=== PATIENT | male | born 1935 | race Caucasian/White ===

== ENCOUNTER 2017-06-14 11:56 | Day surgery (SDC) | payer MEDICARE ==
[~2017-06-14 11:56] MED LIST: Acetaminophen TAB* 325 MG PO PRN; Buffered Lidocaine 0.9% SYRIN* 5 ML/SYR SYRINGE INTRADERM ONE
[2017-06-14] MEDS ORDERED: Midazolam* 1 MG/ML 2 ML VIAL (2 MG) ONE (13:33)
[2017-06-14] MEDS ORDERED: fentaNYL* 50 MCG/ML 2 ML VIAL (100 MCG VIAL) ONE (13:33)
[2017-06-14] MEDS ORDERED: BSS OPTH.SOL* BTL ONE (15:58)
[2017-06-14] MEDS ORDERED: Lidocaine 1% MPF* 2 ML VIAL ONE ×2 (15:59→16:15)
[2017-06-14 16:11] VITALS: BP 144/78
[2017-06-14] MEDS ORDERED: Tropicamide 1% OPTH.SOL* BTL ONE (16:15)
[2017-06-14] MEDS ORDERED: Neomycin/Polymy/Dex OPHTH.OIN* 3.5 GM ONE (16:15)
[2017-06-14] MEDS ORDERED: Tetracaine 0.5% OPTH.SOL 4 ML* 1 DROP BTL ONE (16:15)
[2017-06-14] MEDS ORDERED: Cyclopentolate 1% OPTH.SOL* 2 ML BTL ONE (16:15)
[2017-06-14] MEDS ORDERED: Buffered Lidocaine 0.9% SYRIN* 5 ML/SYR SYRINGE ONE (16:15)
[2017-06-14] MEDS ORDERED: Phenylephrine 2.5% OPTH.SOL* 2 ML BTL ONE (16:15)
[2017-06-14] MEDS ORDERED: Ketorolac 0.5% OPHTH (NF) 0.5 % 5 ML BTL ONE (16:15)
[2017-06-14] MEDS ORDERED: Povidone Iodine 5% OPTH* 30 ML BTL ONE (16:15)
[2017-06-14] MEDS ORDERED: acetaZOLAMIDE TAB* 250 MG ONE (16:15)
--- NOTE | 2017-06-15 10:12 | OP ---
DATE OF OPERATION: 06/14/17 - [facility] DATE OF : 31 SURGEON: Reji Colunga MD ANESTHESIOLOGIST: Toby Melendrez MD ANESTHESIA: Monitored anesthesia care. PRE-OP DIAGNOSIS: Cataract of the right eye. 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 OPERATIVE PROCEDURE: Cataract surgery of the right eye. IMPLANTS: SN60WF 23.3 diopter lens to the right eye. COMPLICATIONS: Floppy iris syndrome. DESCRIPTION OF PROCEDURE: The patient was given phenylephrine 2.5% and cyclopentolate 1% eye drops to the operative eye in the preoperative area. The patient was brought to the operating room where a time-out was taken to identify the correct patient, site, and side of surgery. The patient's right eye was prepped and draped in the usual sterile fashion with 5% Betadine. A second time- out was taken to identify the correct patient, site, and side of the surgery, and correct lens selection. A lid speculum was placed to the right eye. A 1-mm paracentesis blade was used to make a clear corneal incision in the superotemporal position. Preservative-free 1% lidocaine was injected into the anterior chamber. DisCoVisc was then injected into the anterior chamber. A 2.75-mm keratome blade was used to make a triplanar incision at the inferotemporal position. A cystotome initiated a capsulorrhexis, which was completed with Utrata forceps in a continuous and curvilinear manner. Hydrodissection of the lens was performed with BSS on a cannula. The lens could be spun in the capsular bag. The phacoemulsification handpiece was used with a [id number] technique to remove the nucleus in its entirety. The I/A handpiece then removed the residual cortical lens material. DisCoVisc was injected to inflate the capsular bag. The planned SN60WF 23.5 diopter lens was injected into the capsular bag. Injection lens was complicated by the iris being sucked into the main incision. After placement of the lens within the capsular bag, the iris demonstrated significant floppy iris syndrome with repeated suctioning to the main incision. Multiple attempts were made to reposit the iris within the confines of the anterior chamber, but the iris persisted to be sucked into the main incision. Three nylon sutures were placed at the main incision site with the tails rotated to achieve a water tight sealing of the main incision. With the sutures sealing the wound, the iris was then able to be stable within the anterior chamber. The residual DisCoVisc was removed from the anterior chamber with BSS on a cannula with multiple suctioning and expression of the DisCoVisc. The corneal incisions demonstrated no leaks at a physiologic pressure around 20 mmHg per palpation. The wounds were inspected with [place] and no vitreous was found to be adherent to the wounds. A bandage contact lens was then placed on the surface of the eye followed by a small amount of Maxitrol ointment placed on the surface of the eye. An adhesive patch and shield were then placed on the operative eye. The patient was taken to the postoperative area in stable condition. In the postoperative area, I discussed the difficulty with the floppy iris syndrome and the necessity to place sutures in the main incision with the patient. The patient was also given Diamox 500 mg by mouth to assist in postoperative eye pressure maintenance. The patient will be seen again tomorrow in clinic. [id number]/[facility] #: [id number] [facility]ITAL[facility]
== END 2017-06-14 16:09 | disposition home or self-care (01) ==
LOC: OREAST 11:56
PROVIDERS: ATTEND Student in an Organized Health Care Education/Training Program
DX: H25.11 Age-related nuclear cataract, right eye (principal); H21.81 Floppy iris syndrome; H40.053 Ocular hypertension, bilateral; Z87.891 Personal history of nicotine dependence; I10 Essential (primary) hypertension; E03.9 Hypothyroidism, unspecified
CPT/HCPCS: A9270-GY; J2250; J3010; V2632

== ENCOUNTER 2017-06-21 11:45 | Day surgery (SDC) | payer MEDICARE ==
[~2017-06-21 11:45] MED LIST changes: -Acetaminophen TAB* 325 MG PO PRN; +Buffered Lidocaine 0.9% SYRIN* 5 ML/SYR SYRINGE ONE; +Cyclopentolate 1% OPTH.SOL* 2 ML BTL ONE; +Ketorolac 0.5% OPHTH (NF) 0.5 % 5 ML BTL ONE; +Lidocaine 1% MPF* 2 ML VIAL ONE; +Neomycin/Polymy/Dex OPHTH.OIN* 3.5 GM ONE; +Phenylephrine 2.5% OPTH.SOL* 2 ML BTL ONE; +Povidone Iodine 5% OPTH* 30 ML BTL ONE; +Tetracaine 0.5% OPTH.SOL 4 ML* 1 DROP BTL ONE; +Tropicamide 1% OPTH.SOL* BTL ONE; +acetaZOLAMIDE TAB* 250 MG ONE
[2017-06-21] MEDS ORDERED: Midazolam* 1 MG/ML 2 ML VIAL (2 MG) ONE (12:23)
[2017-06-21] MEDS ORDERED: Carbachol 0.01% OPH.SOL* 1.5 ML OPHTH.SOLN ONE (13:06)
[2017-06-21 14:13] VITALS: BP 136/67
--- NOTE | 2017-06-22 04:04 | OP ---
DATE OF OPERATION: 06/21/17 - [facility] DATE OF : 31 SURGEON: Reji Colunga MD ANESTHESIOLOGIST: Zane Felipe DO ANESTHESIA: Monitored anesthesia care. PRE-OP DIAGNOSIS: Cataract, left eye with floppy iris syndrome. POST-OP DIAGNOSIS: Cataract, left eye with floppy iris syndrome. OPERATIVE PROCEDURE: Cataract surgery of the left eye. IMPLANTS: SN60WF 21.5 diopter lens to the left eye. COMPLICATIONS: None. DESCRIPTION OF PROCEDURE: The patient was given phenylephrine 2.5% and cyclopentolate 1% eye drops to the operative eye in the preoperative area. The patient was brought to the operating room, where a time-out was taken to identify the correct patient, site, and side of surgery. The patient's left eye was prepped and draped in the usual sterile fashion with 5% Betadine. A second time-out was taken to verify the correct patient, site, and side of the surgery, and correct lens selection. A lid speculum was placed to the left eye. A 1-mm paracentesis blade was used to make a clear corneal incision in the inferotemporal position. Preservative-free 1% lidocaine was injected into the anterior chamber. Healon was injected into the anterior chamber. A 2.75- mm keratome blade was used to make a triplanar incision at the superotemporal position. A Malyugin ring was then inserted for mechanical pupillary dilation due to the patient's floppy iris syndrome. A cystotome initiated a capsulorrhexis, which was completed with Utrata forceps in a continuous and curvilinear manner. Hydrodissection of the lens was performed with BSS on a cannula. The lens could be spun in the capsular bag. The phacoemulsification handpiece was used with a [id number] technique to remove the nucleus in its entirety. The I/A handpiece then removed the residual cortical lens material. Healon was injected to inflate the capsular bag. The planned SN60WF 21.5 diopter lens was injected into the capsular bag. The Malyugin ring was then removed from the anterior chamber using a [place] technique. The residual Healon was removed from the eye with the I/A handpiece. Miostat for intraocular use was then injected in the anterior chamber in a volume of 0.25 mm for pupil constriction and eye pressure control postoperatively. The corneal incisions were hydrated and no leaks occurred at physiologic pressure around 20 mmHg per palpation. The lid speculum was removed and drapes removed. Maxitrol ointment was placed on the surface of the operative eye. An adhesive patch and shield was placed on the operative eye. The patient was taken to the postoperative area in stable condition. [id number] #: [id number] [facility]
== END 2017-06-21 13:44 | disposition home or self-care (01) ==
LOC: OREAST 11:45
PROVIDERS: ATTEND Student in an Organized Health Care Education/Training Program
DX: H25.12 Age-related nuclear cataract, left eye (principal); H21.81 Floppy iris syndrome; Z87.891 Personal history of nicotine dependence; H40.053 Ocular hypertension, bilateral; I10 Essential (primary) hypertension; E03.9 Hypothyroidism, unspecified
CPT/HCPCS: A9270-GY; J2250; V2632